=== PATIENT | male | born 1935 | race Two or more races ===

== ENCOUNTER 2017-05-15 13:38 | Emergency (ER) | payer MEDICARE, OTHER ==
[~2017-05-15] VITALS: Ht 162.6 cm; Wt 73.0 kg
[2017-05-15] MEDS ORDERED: SODIUM CHLORIDE 0.9% 1,000 ML IV ONE (14:31)
[2017-05-15] MEDS ORDERED: PLEASE ENTER ALLERGIES MC SCH (15:00)
[2017-05-15] MEDS ORDERED: SODIUM CHLORIDE 0.9% 1,000ML IVBOLUS ONE (15:00)
[2017-05-15 15:50] LABS: BASOPHILS # (AUTO) 0.03 x10^3/uL (0-0.1); BASOPHILS % (AUTO) 1 % (0-1); EOSINOPHILS % (AUTO) 1 % (1-7); LYMPHOCYTES # (AUTO) 0.93 x10^3/uL (1-3.4); LYMPHOCYTES % (AUTO) 14 % (22-44); MD NO; MEAN CORPUSCULAR HGB CONC 33.8 g/dL (33.2-36.2); MEAN CORPUSCULAR VOLUME 97.8 fL (81-97); MEAN PLATELET VOLUME 7.1 fL (7.4-10.4); MONOCYTES # (AUTO) 0.56 x10^3/uL (0.2-0.8); MONOCYTES % (AUTO) 8 % (2-9); NEUTROPHILS # (AUTO) 5.12 x10^3/uL (1.8-6.8); NEUTROPHILS % (AUTO) 76 % (42-75); PLATELET COUNT 210 x10^3/uL (130-400); RED BLOOD COUNT 5.08 x10^6/uL (4.38-5.82); RED CELL DISTRIBUTION WIDTH 14.1 % (9.4-14.8)
[2017-05-15 16:02] LABS: ALANINE AMINOTRANSFERASE 29 U/L (12-78); ALBUMIN 4.3 g/dL (3.4-5.0); ANION GAP 7 mmol/L (5-15); CALCIUM 8.7 mg/dL (8.5-10.1); CHLORIDE 92 mmol/L (98-107); CREATININE 1.14 mg/dL (0.7-1.3)
[2017-05-15 16:05] LABS: ALKALINE PHOSPHATASE 70 U/L (45-117); BILIRUBIN,TOTAL 1.2 mg/dL (0.2-1.0); TOTAL PROTEIN 8.4 g/dL (6.4-8.2)
[2017-05-15 16:15] LABS: MICROSCOPIC AUTO
[2017-05-15 16:18] LABS: CULTURE INDICATED? NO
[2017-05-15 16:48] VITALS: BP 132/82
== END 2017-05-15 17:19 | disposition home or self-care (01) ==
LOC: ED 17:13
DX: K80.70 Calculus of gallbladder and bile duct without cholecystitis without obstruction (principal); I10 Essential (primary) hypertension
CPT/HCPCS: 36415; 74022; 74177; 80053; 81001; 83690; 85025; 96360; 96361; 99285; J7030

== ENCOUNTER 2017-10-26 02:08 | Inpatient (IN) | payer MEDICARE ==
[~2017-10-26] VITALS: Ht 162.6 cm; Wt 73.3 kg
[2017-10-26] MEDS ORDERED: MORPHINE SULFATE 4 MG/ML, 1ML ONE ×4 (02:54→05:46)
[2017-10-26 02:55] LABS: BASOPHILS # (AUTO) 0.01 x10^3/uL (0-0.1); BASOPHILS % (AUTO) 0 % (0-1); EOSINOPHILS # (AUTO) 0.11 x10^3/uL (0-0.4); EOSINOPHILS % (AUTO) 1 % (1-7); LYMPHOCYTES # (AUTO) 0.86 x10^3/uL (1-3.4); LYMPHOCYTES % (AUTO) 8 % (22-44); MD NO; MEAN CORPUSCULAR HGB CONC 33.7 g/dL (33.2-36.2); MEAN CORPUSCULAR VOLUME 97.9 fL (81-97); MEAN PLATELET VOLUME 6.8 fL (7.4-10.4); MONOCYTES # (AUTO) 0.49 x10^3/uL (0.2-0.8); MONOCYTES % (AUTO) 5 % (2-9); NEUTROPHILS # (AUTO) 9.04 x10^3/uL (1.8-6.8); NEUTROPHILS % (AUTO) 86 % (42-75); PLATELET COUNT 196 x10^3/uL (130-400); RED BLOOD COUNT 4.66 x10^6/uL (4.38-5.82); RED CELL DISTRIBUTION WIDTH 14.1 % (9.4-14.8)
[2017-10-26] MEDS: MORPHINE SULFATE 4 MG/ML, 1ML IVPush PRN ×2 (02:57→03:35)
[2017-10-26] MEDS ORDERED: SODIUM CHLORIDE FLUSH 10ML SYR IVF ONE (03:00)
[2017-10-26 03:04] LABS: INTERNATIONAL NORMALIZED RATIO 1.02 (0.93-1.1); PROTHROMBIN TIME 10.5 Seconds (9.6-11.5)
[2017-10-26 03:08] LABS: ALANINE AMINOTRANSFERASE 26 U/L (12-78); ANION GAP 7 mmol/L (5-15); CALCIUM 9.2 mg/dL (8.5-10.1); CHLORIDE 98 mmol/L (98-107); CREATININE 1.18 mg/dL (0.7-1.3)
[2017-10-26 03:16] LABS: ALKALINE PHOSPHATASE 66 U/L (45-117); BILIRUBIN,TOTAL 0.6 mg/dL (0.2-1.0); TOTAL PROTEIN 7.9 g/dL (6.4-8.2)
[2017-10-26] MEDS ORDERED: MECL12.52 PO (03:40)
[2017-10-26] MEDS ORDERED: FLUT1AER INH (03:40)
[2017-10-26] MEDS ORDERED: FEXO180T72 PO (03:40)
[2017-10-26] MEDS ORDERED: LOSARTAN PO (03:40)
[2017-10-26] MEDS ORDERED: ALLO100T30 PO (03:40)
[2017-10-26] MEDS ORDERED: ASPI-515 PO (03:40)
[2017-10-26 03:50] LABS: MICROSCOPIC NOT IND
[2017-10-26 03:52] LABS: CULTURE INDICATED? NO
[2017-10-26] MEDS ORDERED: OMNIPAQUE 350 MG/ML, 100ML BOTTLE ONE (04:15)
[2017-10-26] MEDS ORDERED: MORPHINE SULFATE 4 MG/ML, 1ML IVPush ONE (05:30)
[2017-10-26] MEDS ORDERED: GLUC1TAB27 PO (06:00)
[2017-10-26] MEDS ORDERED: CHOL200059 PO (06:00)
[2017-10-26] MEDS ORDERED: ACETAMINOPHEN 325 MG TABLET PO PRN ×2 (06:30→17:00)
[2017-10-26] MEDS ORDERED: hydrALAzine 20 MG/ML, 1ML IVPush PRN (06:30)
[2017-10-26] MEDS ORDERED: ONDANSETRON ODT 4 MG PO PRN (06:30)
[2017-10-26] MEDS ORDERED: DOCUSATE 100 MG CAPSULE PO PRN (06:30)
[2017-10-26] MEDS ORDERED: HYDROmorphone 2 MG/ML, 1ML IVPush PRN (06:30)
[2017-10-26] MEDS ORDERED: BISACODYL 10 MG SUPP PR PRN (06:30)
[2017-10-26] MEDS ORDERED: ENALAPRILAT 1.25 MG/ML, 2ML IVPush PRN (06:30)
[2017-10-26] MEDS ORDERED: ONDANSETRON 2MG/ML, 2ML IVPush PRN (06:30)
[2017-10-26] MEDS ORDERED: morphine SULFATE 10 MG/ML, 1ML IVPush PRN (06:30)
[2017-10-26 06:48] VITALS: BP 173/84
[2017-10-26 07:37] VITALS: BP 170/82
[2017-10-26] MEDS ORDERED: CEFTRIAXONE 1,000 MG in SODIUM CHLORIDE 0.9% 50 ML IV SCH (09:00)
[2017-10-26] MEDS: MECLIZINE 12.5 MG TABLET PO SCH (09:37)
[2017-10-26] MEDS: ASPIRIN 81 MG TABLET EC PO SCH (09:37)
[2017-10-26] MEDS: ALLOPURINOL 100 MG TABLET PO SCH (09:37)
[2017-10-26] MEDS: LOSARTAN 50MG TABLET PO SCH (09:37)
[2017-10-26] MEDS: FLUTICASONE/VILANTEROL 100-25MCG/INH INH SCH (11:38)
[2017-10-26] MEDS: CEFTRIAXONE PMX 1GM/50ML 50 ML IV SCH (11:39)
[2017-10-26] MEDS: ENOXAPARIN 40 MG/0.4 ML SQ SCH (11:39)
[2017-10-26] MEDS ORDERED: POTASSIUM CHLORIDE 10 MEQ in D5%-0.45% NACL 1,000 ML IV SCH (12:00)
[2017-10-26 13:50] VITALS: BP 151/93
[2017-10-26] MEDS ORDERED: FENTANYL PF 100 MCG/2ML ONE ×2 (15:43→16:59)
[2017-10-26] MEDS ORDERED: LIDOCAINE GEL 2%, 5ML ONE (15:44)
[2017-10-26] MEDS ORDERED: LABETALOL 5MG/ML, 20ML ONE (15:52)
[2017-10-26] MEDS ORDERED: BUPIVACAINE/PF 0.25% INFIL ONE (16:19)
[2017-10-26] MEDS ORDERED: CEFAZOLIN 1,000 MG ONE (16:36)
[2017-10-26] MEDS ORDERED: PROPOFOL 10 MG/ML, 20ML ONE (16:36)
[2017-10-26] MEDS ORDERED: DEXAMETHASONE 4 MG/ML, 1ML ONE (16:36)
[2017-10-26] MEDS ORDERED: SUCCINYLCHOLINE 20 MG/ML, 10ML ONE (16:36)
[2017-10-26] MEDS ORDERED: ROCURONIUM 10MG/ML,5ML ONE (16:36)
[2017-10-26] MEDS ORDERED: GLYCOPYRROLATE 0.2MG/1ML, 5ML ONE (16:36)
[2017-10-26] MEDS ORDERED: NEOSTIGMINE 1 MG/ML, 10ML ONE (16:36)
[2017-10-26] MEDS ORDERED: ONDANSETRON 2MG/ML, 2ML ONE ×2 (16:36→17:31)
[2017-10-26] MEDS ORDERED: ALBUTEROL SULFATE 2.5 MG/3 ML ONE (16:49)
[2017-10-26] MEDS ORDERED: BUPIVACAINE 0.25% ONE (16:50)
[2017-10-26] MEDS ORDERED: hydrALAzine 20 MG/ML, 1ML ONE (16:54)
[2017-10-26] MEDS ORDERED: ALBUTEROL/IPRATROPIUM 2.5MG/0.5MG, 3 ML NPPB PRN (17:00)
[2017-10-26] MEDS ORDERED: LABETALOL 5MG/ML, 20ML IV PRN (17:00)
[2017-10-26] MEDS ORDERED: hydrALAzine 20 MG/ML, 1ML IV PRN (17:00)
[2017-10-26] MEDS ORDERED: EPHEDRINE 50 MG/ML, 1ML IM PRN (17:00)
[2017-10-26] MEDS ORDERED: PROMETHAZINE 25 MG/ML, 1ML IV PRN (17:00)
[2017-10-26] MEDS ORDERED: HYDROmorphone 1 MG/ML, 1ML IV PRN (17:00)
[2017-10-26] MEDS ORDERED: OXYcodone 5 MG/5 ML ORAL.SOL UDC PO PRN (17:00)
[2017-10-26] MEDS ORDERED: MEPERIDINE/PF 25MG/0.5ML IVPush PRN (17:00)
[2017-10-26] MEDS ORDERED: ONDANSETRON ODT 8 MG PO PRN (17:00)
[2017-10-26] MEDS ORDERED: MIDAZOLAM 1 MG/ML, 2ML IV PRN (17:00)
[2017-10-26] MEDS ORDERED: MORPHINE SULFATE 4 MG/ML, 1ML IVPush PRN (17:00)
[2017-10-26] MEDS: FENTANYL PF 100 MCG/2ML IV PRN ×3 (17:05→17:27)
[2017-10-26] MEDS ORDERED: OXYcodone 5 MG/5 ML ORAL.SOL UDC ONE (17:18)
[2017-10-26 18:20] VITALS: BP 171/68
[2017-10-26] MEDS ORDERED: LACTATED RINGERS 1,000 ML IV SCH (21:30)
[2017-10-26] MEDS ORDERED: HYDROcodone/APAP 5/325 TABLET PO PRN (21:30)
[2017-10-26] MEDS ORDERED: ONDANSETRON 2MG/ML, 2ML IV PRN (21:30)
[2017-10-26] MEDS ORDERED: morphine SULFATE 10 MG/ML, 1ML IV PRN (21:30)
[2017-10-26] MEDS: HYDROcodone/APAP 5/325 TABLET PO PRN (23:13)
[2017-10-27 00:11] VITALS: BP 111/73
[2017-10-27 06:27] LABS: BASOPHILS # (AUTO) 0.01 x10^3/uL (0-0.1); BASOPHILS % (AUTO) 0 % (0-1); EOSINOPHILS % (AUTO) 0 % (1-7); LYMPHOCYTES # (AUTO) 0.45 x10^3/uL (1-3.4); LYMPHOCYTES % (AUTO) 4 % (22-44); MD NO; MEAN CORPUSCULAR HEMOGLOBIN 33.3 pg (27.5-34.5); MEAN CORPUSCULAR HGB CONC 33.7 g/dL (33.2-36.2); MEAN CORPUSCULAR VOLUME 98.7 fL (81-97); MONOCYTES # (AUTO) 0.24 x10^3/uL (0.2-0.8); MONOCYTES % (AUTO) 2 % (2-9); NEUTROPHILS # (AUTO) 10.78 x10^3/uL (1.8-6.8); NEUTROPHILS % (AUTO) 94 % (42-75); PLATELET COUNT 158 x10^3/uL (130-400); RED BLOOD COUNT 4.35 x10^6/uL (4.38-5.82); RED CELL DISTRIBUTION WIDTH 14.2 % (9.4-14.8)
[2017-10-27] MEDS: ENOXAPARIN 40 MG/0.4 ML SQ SCH (06:30)
[2017-10-27 06:36] LABS: ANION GAP 7 mmol/L (5-15); CALCIUM 8.1 mg/dL (8.5-10.1); CHLORIDE 96 mmol/L (98-107); CREATININE 1.45 mg/dL (0.7-1.3)
[2017-10-27 07:23] VITALS: BP 104/66
[2017-10-27] MEDS ORDERED: POTASSIUM CHLORIDE 10 MEQ in D5%-0.9% NACL 1,000 ML IV SCH (08:30)
[2017-10-27] MEDS: ASPIRIN 81 MG TABLET EC PO SCH (09:38)
[2017-10-27] MEDS: ALLOPURINOL 100 MG TABLET PO SCH (09:38)
[2017-10-27] MEDS: FLUTICASONE/VILANTEROL 100-25MCG/INH INH SCH (09:38)
[2017-10-27] MEDS: MECLIZINE 12.5 MG TABLET PO SCH (09:38)
[2017-10-27] MEDS: LOSARTAN 50MG TABLET PO SCH (09:39)
[2017-10-27] MEDS: SODIUM CHLORIDE FLUSH 10ML SYR IVF SCH ×2 (09:39→20:48)
[2017-10-27] MEDS: CEFTRIAXONE PMX 1GM/50ML 50 ML IV SCH (10:26)
[2017-10-27 13:56] VITALS: BP 106/70
[2017-10-27 20:10] VITALS: BP 115/77
[2017-10-28 00:21] VITALS: BP 109/70
[2017-10-28] MEDS: HYDROcodone/APAP 5/325 TABLET PO PRN ×3 (03:13→13:18)
[2017-10-28] MEDS: ENOXAPARIN 40 MG/0.4 ML SQ SCH (05:43)
[2017-10-28 07:00] VITALS: BP 94/59
[2017-10-28 07:31] LABS: MEAN CORPUSCULAR HEMOGLOBIN 33.4 pg (27.5-34.5); PLATELET COUNT 142 x10^3/uL (130-400); RED BLOOD COUNT 4.36 x10^6/uL (4.38-5.82); RED CELL DISTRIBUTION WIDTH 14.2 % (9.4-14.8)
[2017-10-28 07:43] LABS: ANION GAP 8 mmol/L (5-15); CALCIUM 8.9 mg/dL (8.5-10.1); CHLORIDE 95 mmol/L (98-107); CREATININE 1.17 mg/dL (0.7-1.3)
[2017-10-28 08:09] LABS: MD YES
[2017-10-28 08:11] LABS: BANDS%(MANUAL) 6 % (0-7); LYMPHS% (MANUAL) 4 % (22-44); SEGS% (MANUAL) 90 % (42-75)
[2017-10-28 08:12] LABS: <PLATELET ESTIMATE> ADEQUATE; <PLT MORPHOLOGY> NORMAL PLT MORPH; <RBC MORPHOLOGY> NORMAL
[2017-10-28] MEDS: ASPIRIN 81 MG TABLET EC PO SCH (08:17)
[2017-10-28] MEDS: MECLIZINE 12.5 MG TABLET PO SCH (08:17)
[2017-10-28] MEDS: FLUTICASONE/VILANTEROL 100-25MCG/INH INH SCH (08:17)
[2017-10-28] MEDS: SODIUM CHLORIDE FLUSH 10ML SYR IVF SCH (08:17)
[2017-10-28] MEDS: LOSARTAN 50MG TABLET PO SCH (08:18)
[2017-10-28] MEDS: ALLOPURINOL 100 MG TABLET PO SCH (08:18)
[2017-10-28] MEDS: CEFTRIAXONE PMX 1GM/50ML 50 ML IV SCH (10:18)
[2017-10-28 13:38] VITALS: BP 100/68
== END 2017-10-28 15:32 | disposition home or self-care (01) | DRG 853 ==
LOC: ED 05:39 → EDIP 06:08 → 4WST 06:43
PROVIDERS: ADMIT Anesthesiology; ATTEND Anesthesiology
PROC: 0FT44ZZ Resection of Gallbladder, Percutaneous Endoscopic Approach (ICD-10-PCS; principal; 2017-10-26 16:00)
DX: A41.9 Sepsis, unspecified organism (principal); N17.0 Acute kidney failure with tubular necrosis; K80.00 Calculus of gallbladder with acute cholecystitis without obstruction; E87.1 Hypo-osmolality and hyponatremia; I10 Essential (primary) hypertension; K82.8 Other specified diseases of gallbladder; J45.909 Unspecified asthma, uncomplicated; K66.0 Peritoneal adhesions (postprocedural) (postinfection); M10.9 Gout, unspecified; Z87.891 Personal history of nicotine dependence; Z79.899 Other long term (current) drug therapy
CPT/HCPCS: 36415; 71045; 74177; 76700; 80048; 80053; 81003; 83690; 85025; 85610; 85730; 88304; 96374; 96376; J0690; J0696; J1100; J1170; J2405; J2704; J2710; J3010; J3480; J3490; J7620; Q9967; C1760; J0330; J2270; J7120

== ENCOUNTER 2017-12-06 16:12 | Inpatient (IN) | payer MEDICARE ==
[~2017-12-06] VITALS: Ht 162.6 cm; Wt 71.6 kg
[~2017-12-06 16:12] MED LIST: ALLO100T30 PO; ASPI-515 PO; CHOL200059 PO; FEXO180T72 PO; FLUT1AER INH; GLUC1TAB27 PO; LOSARTAN PO; MECL12.52 PO
[2017-12-06] MEDS ORDERED: SODIUM CHLORIDE FLUSH 10ML SYR IVF ONE ×2 (16:30→17:30)
[2017-12-06 16:38] LABS: BASOPHILS # (AUTO) 0.02 x10^3/uL (0-0.1); BASOPHILS % (AUTO) 0 % (0-1); EOSINOPHILS % (AUTO) 1 % (1-7); LYMPHOCYTES # (AUTO) 1.74 x10^3/uL (1-3.4); LYMPHOCYTES % (AUTO) 22 % (22-44); MD NO; MEAN CORPUSCULAR HEMOGLOBIN 33.3 pg (27.5-34.5); MEAN CORPUSCULAR HGB CONC 33.6 g/dL (33.2-36.2); MEAN CORPUSCULAR VOLUME 99.1 fL (81-97); MEAN PLATELET VOLUME 6.7 fL (7.4-10.4); MONOCYTES # (AUTO) 0.48 x10^3/uL (0.2-0.8); MONOCYTES % (AUTO) 6 % (2-9); NEUTROPHILS # (AUTO) 5.75 x10^3/uL (1.8-6.8); NEUTROPHILS % (AUTO) 71 % (42-75); PLATELET COUNT 224 x10^3/uL (130-400); RED BLOOD COUNT 4.36 x10^6/uL (4.38-5.82); RED CELL DISTRIBUTION WIDTH 14.8 % (9.4-14.8)
[2017-12-06 16:47] LABS: MICROSCOPIC NOT IND
[2017-12-06] MEDS ORDERED: MULT-6 PO (16:47)
[2017-12-06] MEDS ORDERED: PANT20TA3 PO (16:47)
[2017-12-06 16:48] LABS: CULTURE INDICATED? NO
[2017-12-06 16:50] LABS: ALANINE AMINOTRANSFERASE 22 U/L (12-78); ALBUMIN 4.1 g/dL (3.4-5.0); ANION GAP 8 mmol/L (5-15); CHLORIDE 103 mmol/L (98-107); CREATININE 1.09 mg/dL (0.7-1.3)
[2017-12-06 16:52] LABS: ALKALINE PHOSPHATASE 80 U/L (45-117); BILIRUBIN,TOTAL 0.8 mg/dL (0.2-1.0); TOTAL PROTEIN 8.2 g/dL (6.4-8.2)
[2017-12-06] MEDS ORDERED: OMNIPAQUE 350 MG/ML, 100ML BOTTLE ONE (17:47)
[2017-12-06] MEDS ORDERED: CEFTRIAXONE PMX 1GM/50ML 50 ML ONE (19:20)
[2017-12-06] MEDS ORDERED: BUPIVACAINE/PF-EPI 0.5% 1:200K ONE (19:21)
[2017-12-06] MEDS ORDERED: BUPIVACAINE/PF-EPI 0.5% 1:200K IM ONE (19:27)
[2017-12-06] MEDS ORDERED: CEFTRIAXONE 1,000 MG in SODIUM CHLORIDE 0.9% 50 ML IVPB ONE (19:30)
[2017-12-06] MEDS ORDERED: METRONIDAZOLE PMX 500MG/100ML 100 ML IVPB ONE (19:30)
[2017-12-06] MEDS ORDERED: CEFTRIAXONE 1,000 MG IV ONE (19:30)
[2017-12-06] MEDS ORDERED: metroNIDAZOLE 5 MG/ML INJ 500 MG in SYRINGE 1 EA IV SCH (19:30)
[2017-12-06] MEDS ORDERED: FENTANYL PF 100 MCG/2ML ONE ×3 (19:33→20:58)
[2017-12-06] MEDS ORDERED: DEXAMETHASONE 4 MG/ML, 1ML ONE (19:42)
[2017-12-06] MEDS ORDERED: GLYCOPYRROLATE 0.2MG/1ML, 5ML ONE (19:42)
[2017-12-06] MEDS ORDERED: ONDANSETRON 2MG/ML, 2ML ONE (19:42)
[2017-12-06] MEDS ORDERED: PROPOFOL 10 MG/ML, 20ML ONE (19:42)
[2017-12-06] MEDS ORDERED: ROCURONIUM 10 MG/ML,10ML ONE (19:42)
[2017-12-06] MEDS ORDERED: NEOSTIGMINE 1 MG/ML, 10ML ONE (19:42)
[2017-12-06] MEDS ORDERED: SUCCINYLCHOLINE 20 MG/ML, 10ML ONE (19:42)
[2017-12-06] MEDS ORDERED: PROMETHAZINE 25 MG/ML, 1ML IV PRN (20:00)
[2017-12-06] MEDS ORDERED: ACETAMINOPHEN 325 MG TABLET PO PRN (20:00)
[2017-12-06] MEDS ORDERED: LORazepam 2 MG/ML, 1ML IVPush PRN (20:00)
[2017-12-06] MEDS ORDERED: HYDROmorphone 1 MG/ML, 1ML IV PRN ×2 (20:00→22:00)
[2017-12-06] MEDS ORDERED: OXYcodone 5 MG/5 ML ORAL.SOL UDC PO PRN (20:00)
[2017-12-06] MEDS ORDERED: LABETALOL 5MG/ML, 20ML IV PRN (20:00)
[2017-12-06] MEDS ORDERED: ACETAMINOPHEN 650 MG/20.3 ML UDC ONE (20:57)
[2017-12-06] MEDS ORDERED: OXYcodone 5 MG/5 ML ORAL.SOL UDC ONE (20:58)
[2017-12-06] MEDS: FENTANYL PF 100 MCG/2ML IV PRN ×2 (21:05→21:18)
[2017-12-06] MEDS ORDERED: D5%-0.45NACL+KCL 20MEQ 1,000 ML IV SCH (22:00)
[2017-12-06] MEDS ORDERED: morphine SULFATE 10 MG/ML, 1ML IV PRN (22:00)
[2017-12-06] MEDS ORDERED: ENOXAPARIN 40 MG/0.4 ML SQ SCH (22:00)
[2017-12-06] MEDS ORDERED: ONDANSETRON 2MG/ML, 2ML IV PRN (22:00)
[2017-12-06] MEDS ORDERED: HYDROcodone/APAP 5/325 TABLET PO PRN (22:00)
[2017-12-06] MEDS: METRONIDAZOLE PMX 500MG/100ML 100 ML IVPB SCH (22:21)
[2017-12-06] MEDS: CEFOTETAN PMX 1GM/50ML 50 ML IVPB SCH (23:36)
[2017-12-07 02:57] VITALS: BP 133/80
[2017-12-07 05:09] LABS: MEAN CORPUSCULAR HEMOGLOBIN 33.5 pg (27.5-34.5); MEAN CORPUSCULAR VOLUME 98.6 fL (81-97); MEAN PLATELET VOLUME 7.7 fL (7.4-10.4); PLATELET COUNT 153 x10^3/uL (130-400); RED BLOOD COUNT 3.86 x10^6/uL (4.38-5.82); RED CELL DISTRIBUTION WIDTH 14.9 % (9.4-14.8)
[2017-12-07 05:34] LABS: BASOPHILS % (AUTO) 0 % (0-1); EOSINOPHILS % (AUTO) 0 % (1-7); LYMPHOCYTES # (AUTO) 0.35 x10^3/uL (1-3.4); LYMPHOCYTES % (AUTO) 3 % (22-44); MD SCAN; MONOCYTES # (AUTO) 0.23 x10^3/uL (0.2-0.8); MONOCYTES % (AUTO) 2 % (2-9); NEUTROPHILS # (AUTO) 9.94 x10^3/uL (1.8-6.8); NEUTROPHILS % (AUTO) 95 % (42-75)
[2017-12-07] MEDS: METRONIDAZOLE PMX 500MG/100ML 100 ML IVPB SCH (06:29)
[2017-12-07 07:10] VITALS: BP 161/91
[2017-12-07] MEDS ORDERED: PANTOPRAZOLE 20MG TABLET PO SCH (07:30)
[2017-12-07] MEDS ORDERED: LOSARTAN 50MG TABLET PO SCH (09:00)
[2017-12-07] MEDS ORDERED: ENOXAPARIN 40 MG/0.4 ML SQ SCH (09:00)
[2017-12-07] MEDS ORDERED: FLUTICASONE/VILANTEROL 100-25MCG/INH INH SCH (09:00)
[2017-12-07] MEDS ORDERED: MULTIVITAMIN 1 TABLET PO SCH (09:00)
[2017-12-07] MEDS ORDERED: LORATADINE 10 MG TABLET PO SCH (09:00)
[2017-12-07] MEDS ORDERED: ALLOPURINOL 300 MG TABLET PO SCH (09:00)
[2017-12-07] MEDS ORDERED: ASPIRIN 81 MG TABLET CHEW PO SCH (09:00)
[2017-12-07] MEDS ORDERED: MECLIZINE CHEWABLE 25 MG TAB PO SCH (09:00)
[2017-12-07] MEDS ORDERED: HYDR-3240 PO (09:34)
[2017-12-07] MEDS ORDERED: CEPH-368 PO (09:35)
[2017-12-07 12:40] VITALS: BP 134/81
[2017-12-07] MEDS: CEFOTETAN PMX 1GM/50ML 50 ML IVPB SCH (12:54)
== END 2017-12-07 16:00 | disposition home or self-care (01) | DRG 343 ==
LOC: ED 18:35 → 4NOR 21:35 → ED 22:32
PROVIDERS: ADMIT Surgery; ATTEND Surgery
PROC: 0DTJ4ZZ Resection of Appendix, Percutaneous Endoscopic Approach (ICD-10-PCS; principal; 2017-12-06 19:45)
DX: K35.80 Unspecified acute appendicitis (principal); I10 Essential (primary) hypertension; J30.2 Other seasonal allergic rhinitis; M10.9 Gout, unspecified; Z87.891 Personal history of nicotine dependence; Z90.49 Acquired absence of other specified parts of digestive tract
CPT/HCPCS: 36415; 74177; 80053; 81003; 83690; 85025; 88304; 96372; 99285; J0696; J1100; J1650; J2405; J2704; J2710; J3010; J3490; Q9967; J0330; S0074

== ENCOUNTER 2018-01-24 09:22 | Day surgery (SDC) | payer MEDICARE ==
[~2018-01-24] VITALS: Ht 162.6 cm; Wt 66.2 kg
[~2018-01-24 09:22] MED LIST changes: +CEPH-368 PO; +HYDR-3240 PO; +MULT-6 PO; +PANT20TA3 PO
[2018-01-24] MEDS ORDERED: SODIUM CHLORIDE 0.9% 1,000 ML IV SCH (10:10)
[2018-01-24 10:11] VITALS: BP 134/89
[2018-01-24] MEDS ORDERED: LOSA50TA7 PO (10:21)
[2018-01-25] MEDS ORDERED: GLUC-104 PO (15:52)
[2018-01-25] MEDS ORDERED: FLUT1BLS INH (15:52)
[2018-01-25] MEDS ORDERED: CHOL200024 PO (15:52)
[2018-01-25] MEDS ORDERED: HYDR-3237 PO (15:53)
== END 2018-01-24 12:45 | disposition home or self-care (01) ==
LOC: OUT 09:22
PROVIDERS: ATTEND Surgery
DX: K65.1 Peritoneal abscess (principal); I10 Essential (primary) hypertension; Z79.899 Other long term (current) drug therapy; Z87.891 Personal history of nicotine dependence; Z79.82 Long term (current) use of aspirin; Z90.49 Acquired absence of other specified parts of digestive tract
CPT/HCPCS: 49406; 75989; 87070; 87075; 87077; 87186; 87205; 93005; 99156; 99157; C1729; J2250; J3010; J3490; J7030

== ENCOUNTER → 2018-01-25 | Outpatient (CLI) | payer MEDICARE ==
[~2018-01-25] MED LIST changes: +CHOL200024 PO; +FENTANYL PF 100 MCG/2ML ONE; +FLUMAZENIL 0.1 MG/1 ML, 5ML ONE; +FLUT1BLS INH; +GLUC-104 PO; +HYDR-3237 PO; +LIDOCAINE-MPF 2%, 2ML ONE; +LOSA50TA7 PO; +MIDAZOLAM 1 MG/ML, 5ML ONE; +NALOXONE 1 MG/ML, 2ML ONE
== END | disposition home or self-care (01) ==
LOC: STAR 15:02
PROVIDERS: ATTEND Surgery
DX: Z01.818 Encounter for other preprocedural examination (principal); R94.31 Abnormal electrocardiogram [ECG] [EKG]; I48.91 Unspecified atrial fibrillation
CPT/HCPCS: 93005; J2250; J3010; J3490; J2310

== ENCOUNTER → 2018-02-15 | Outpatient (CLI) | payer MEDICARE ==
[~2018-02-15] MED LIST changes: -FENTANYL PF 100 MCG/2ML ONE; -FLUMAZENIL 0.1 MG/1 ML, 5ML ONE; -LIDOCAINE-MPF 2%, 2ML ONE; -MIDAZOLAM 1 MG/ML, 5ML ONE; -NALOXONE 1 MG/ML, 2ML ONE; +REGADENOSON 0.4 MG/5 ML SYRINGE ONE
== END | disposition home or self-care (01) ==
LOC: CFH 12:00
PROVIDERS: ATTEND Internal Medicine Cardiovascular Disease
DX: I07.1 Rheumatic tricuspid insufficiency (principal); I37.1 Nonrheumatic pulmonary valve insufficiency; I35.8 Other nonrheumatic aortic valve disorders; I10 Essential (primary) hypertension; Z87.891 Personal history of nicotine dependence
CPT/HCPCS: 78452; 93017; 93306; A9502; J2785

== ENCOUNTER 2018-02-26 08:04 | Day surgery (SDC) | payer MEDICARE ==
[~2018-02-26] VITALS: Ht 162.6 cm; Wt 66.1 kg
[~2018-02-26 08:04] MED LIST changes: +BUPIVACAINE/PF-EPI 0.5% 1:200K ONE; -REGADENOSON 0.4 MG/5 ML SYRINGE ONE
[2018-02-26] MEDS ORDERED: LACTATED RINGERS 1,000 ML IV SCH (08:40)
[2018-02-26] MEDS ORDERED: ALBUTEROL/IPRATROPIUM 2.5MG/0.5MG, 3 ML ONE (08:46)
[2018-02-26] MEDS ORDERED: ALBUTEROL/IPRATROPIUM 2.5MG/0.5MG, 3 ML NPPB PRN (09:00)
[2018-02-26 09:02] VITALS: BP 150/83
[2018-02-26] MEDS ORDERED: CEFAZOLIN 1,000 MG ONE (09:35)
[2018-02-26] MEDS ORDERED: PROPOFOL 10 MG/ML, 20ML ONE (09:35)
[2018-02-26] MEDS ORDERED: ROCURONIUM 10MG/ML,5ML ONE (10:11)
[2018-02-26] MEDS ORDERED: LIDOCAINE-MPF 2% ,5ML ONE (10:12)
[2018-02-26] MEDS ORDERED: METOPROLOL 1 MG/ML, 5ML ONE (10:12)
[2018-02-26] MEDS ORDERED: HYDROcodone/APAP 7.5-325MG/15ML UDC PO PRN (10:30)
[2018-02-26] MEDS ORDERED: OXYcodone 5 MG/5 ML ORAL.SOL UDC PO PRN (10:30)
[2018-02-26] MEDS ORDERED: MORPHINE SULFATE 4 MG/ML, 1ML IVPush PRN (10:30)
[2018-02-26] MEDS ORDERED: KETOROLAC 30 MG/1 ML IV PRN ×2 (10:30)
[2018-02-26] MEDS ORDERED: HYDROmorphone 1 MG/ML, 1ML IV PRN (10:30)
[2018-02-26] MEDS ORDERED: KETOROLAC 30 MG/1 ML IM PRN (10:30)
[2018-02-26] MEDS ORDERED: FENTANYL PF 100 MCG/2ML IV PRN (10:30)
[2018-02-26] MEDS ORDERED: ACETAMINOPHEN 325 MG TABLET PO PRN (10:30)
[2018-02-26] MEDS ORDERED: MEPERIDINE/PF 25MG/0.5ML IVPush PRN (10:30)
[2018-02-26] MEDS ORDERED: FENTANYL PF 100 MCG/2ML ONE (10:30)
== END 2018-02-26 13:50 | disposition home or self-care (01) ==
LOC: OUT 08:04
PROVIDERS: ATTEND Surgery
DX: K80.20 Calculus of gallbladder without cholecystitis without obstruction (principal); I48.91 Unspecified atrial fibrillation; I10 Essential (primary) hypertension; Z90.49 Acquired absence of other specified parts of digestive tract; Z98.890 Other specified postprocedural states; Z87.891 Personal history of nicotine dependence; Z79.82 Long term (current) use of aspirin; Z79.899 Other long term (current) drug therapy; Z01.810 Encounter for preprocedural cardiovascular examination
CPT/HCPCS: 49320; 88300; 94640; C1729; C1760; J0690; J2704; J3010; J3490; J7120; J7620

== ENCOUNTER 2019-03-08 07:53 | Day surgery (SDC) | payer MEDICARE ==
[~2019-03-08] VITALS: Ht 162.6 cm; Wt 72.0 kg
[~2019-03-08 07:53] MED LIST changes: -BUPIVACAINE/PF-EPI 0.5% 1:200K ONE; +LOSA50TA14 PO; -LOSA50TA7 PO
[2019-03-08 09:12] VITALS: BP 154/94
[2019-03-08] MEDS ORDERED: SODIUM CHLORIDE 0.9% 1,000 ML IV SCH (09:15)
[2019-03-08] MEDS ORDERED: LIDOCAINE 1%, 20ML ONE (14:20)
[2019-03-08] MEDS ORDERED: MIDAZOLAM 1 MG/ML, 5ML ONE (14:28)
[2019-03-08] MEDS ORDERED: NALOXONE 1 MG/ML, 2ML ONE (14:28)
[2019-03-08] MEDS ORDERED: FENTANYL PF 100 MCG/2ML ONE (14:28)
[2019-03-08] MEDS ORDERED: FLUMAZENIL 0.1 MG/1 ML, 5ML ONE (14:28)
== END 2019-03-08 17:10 | disposition home or self-care (01) ==
LOC: OUT 07:53
PROVIDERS: ATTEND Surgery
DX: K75.0 Abscess of liver (principal); K80.20 Calculus of gallbladder without cholecystitis without obstruction; I10 Essential (primary) hypertension; Z79.82 Long term (current) use of aspirin; Z79.899 Other long term (current) drug therapy; Z87.891 Personal history of nicotine dependence; Z90.49 Acquired absence of other specified parts of digestive tract; Z82.49 Family history of ischemic heart disease and other diseases of the circulatory system
CPT/HCPCS: 49405; 99156; 99157; C1729; C1769; J2250; J3010; 75989; J2310

== ENCOUNTER 2019-03-11 06:51 | Day surgery (SDC) | payer MEDICARE ==
[~2019-03-11] VITALS: Ht 162.6 cm; Wt 69.9 kg
[2019-03-11] MEDS ORDERED: BUPIVACAINE/PF 0.5% ONE (07:01)
[2019-03-11 07:31] VITALS: BP 143/91
[2019-03-11] MEDS ORDERED: FENTANYL PF 250 MCG/5ML ONE (07:35)
[2019-03-11] MEDS ORDERED: CEFOTETAN PMX 2GM/50ML 50 ML ONE (07:37)
[2019-03-11] MEDS ORDERED: GLYCOPYRROLATE 0.2MG/1ML, 5ML ONE (07:37)
[2019-03-11] MEDS ORDERED: PROPOFOL 10 MG/ML, 20ML ONE (07:37)
[2019-03-11] MEDS ORDERED: CEFAZOLIN 1,000 MG ONE (07:37)
[2019-03-11] MEDS ORDERED: NEOSTIGMINE 1 MG/ML, 10ML ONE (07:37)
[2019-03-11] MEDS ORDERED: ROCURONIUM 10MG/ML,5ML ONE (07:37)
[2019-03-11] MEDS ORDERED: MECL25TA4 PO (07:41)
[2019-03-11] MEDS ORDERED: ASPI325T17 PO (07:41)
[2019-03-11] MEDS ORDERED: ACETAMINOPHEN 500 MG TABLET PO ONE (08:00)
[2019-03-11] MEDS ORDERED: GABAPENTIN 300 MG CAPSULE PO ONE (08:00)
[2019-03-11] MEDS ORDERED: LACTATED RINGERS 1,000 ML IV SCH (08:00)
[2019-03-11] MEDS ORDERED: MEPERIDINE/PF 25MG/ML,1ML IVPush PRN (08:30)
[2019-03-11] MEDS ORDERED: FENTANYL PF 100 MCG/2ML IV PRN (08:30)
[2019-03-11] MEDS ORDERED: MORPHINE SULFATE 4 MG/ML, 1ML IVPush PRN (08:30)
[2019-03-11] MEDS ORDERED: hydrALAzine 20 MG/ML, 1ML IV PRN (08:30)
[2019-03-11] MEDS ORDERED: LABETALOL 5MG/ML, 20ML IV PRN (08:30)
[2019-03-11] MEDS ORDERED: HYDROmorphone 2 MG/ML, 1ML IVPush PRN (08:30)
[2019-03-11] MEDS ORDERED: OXYcodone 5 MG/5 ML ORAL.SOL UDC PO PRN (08:30)
[2019-03-11] MEDS ORDERED: ONDANSETRON 2MG/ML, 2ML IV PRN (08:30)
[2019-03-11] MEDS ORDERED: EPINEPHRINE 1 MG/ML, 1ML INFIL ONE (08:55)
[2019-03-11] MEDS ORDERED: SUGAMMADEX 200 MG/2 ML IVPush ONE (09:13)
== END 2019-03-11 11:45 | disposition home or self-care (01) ==
LOC: OUT 06:51
PROVIDERS: ATTEND Surgery
DX: K80.20 Calculus of gallbladder without cholecystitis without obstruction (principal); I10 Essential (primary) hypertension; J45.909 Unspecified asthma, uncomplicated; I48.91 Unspecified atrial fibrillation; M10.9 Gout, unspecified; Z79.82 Long term (current) use of aspirin; Z79.899 Other long term (current) drug therapy; Z87.891 Personal history of nicotine dependence; Z90.49 Acquired absence of other specified parts of digestive tract; Z98.890 Other specified postprocedural states; Z82.49 Family history of ischemic heart disease and other diseases of the circulatory system
CPT/HCPCS: 47579; 80047; 88300; C1729; C1760; J0171; J0690; J2704; J2710; J3010; J3490; J7120

== ENCOUNTER 2019-05-11 13:27 | Emergency (ER) | payer MEDICARE ==
[~2019-05-11] VITALS: Ht 162.6 cm; Wt 69.8 kg
[~2019-05-11 13:27] MED LIST changes: +ASPI325T17 PO; +MECL25TA4 PO
[2019-05-11 15:00] LABS: ALBUMIN 4.1 g/dL (3.4-5.0); ANION GAP 3 mmol/L (5-15); CALCIUM 8.8 mg/dL (8.5-10.1); CHLORIDE 104 mmol/L (98-107); CREATININE 1.19 mg/dL (0.7-1.3)
--- NOTE | 2019-05-11 15:06 | NUR ---
PT PRESENTS TO ED WITH C/O RIGHT NECK PAIN X 1 WEEK, DENIES TRAUMA/INJURY. PT DENIES CP/SOB. 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 PT A&O, RESPS EVEN AND UNLABORED. CALL LIGHT IN REACH. PIV PLACED BY EDT. PT TO HAVE CT SCAN, PT INFORMED OF POC.
--- NOTE | 2019-05-11 15:08 | NUR ---
REPORT GIVEN TO AYAH STARKEY.
--- NOTE | 2019-05-11 15:12 | NUR ---
EDPA NOTIFIED OF REPEAT BP
[2019-05-11 15:52] LABS: BASOPHILS # (AUTO) 0.03 x10^3/uL (0-0.1); BASOPHILS % (AUTO) 1 % (0-1); EOSINOPHILS # (AUTO) 0.06 x10^3/uL (0-0.4); EOSINOPHILS % (AUTO) 2 % (1-7); LYMPHOCYTES # (AUTO) 0.66 x10^3/uL (1-3.4); LYMPHOCYTES % (AUTO) 16 % (22-44); MD NO; MEAN CORPUSCULAR HEMOGLOBIN 33.5 pg (27.5-34.5); MEAN CORPUSCULAR HGB CONC 33.8 g/dL (33.2-36.2); MEAN CORPUSCULAR VOLUME 99.2 fL (81-97); MEAN PLATELET VOLUME 7.8 fL (7.4-10.4); MONOCYTES # (AUTO) 0.36 x10^3/uL (0.2-0.8); MONOCYTES % (AUTO) 9 % (2-9); NEUTROPHILS # (AUTO) 3.06 x10^3/uL (1.8-6.8); NEUTROPHILS % (AUTO) 73 % (42-75); PLATELET COUNT 136 x10^3/uL (130-400); RED BLOOD COUNT 4.44 x10^6/uL (4.38-5.82); RED CELL DISTRIBUTION WIDTH 14.5 % (9.4-14.8)
--- NOTE | 2019-05-11 17:27 | NUR ---
CTA RESULTS BACK, PT FOR RECHECK. VSS/UPDATED IN COMPUTER. PT UP/AMB WITH STEADY GAIT TO BR.
[2019-05-11 17:28] VITALS: BP 137/88
[2019-05-11] MEDS ORDERED: OMNIPAQUE 350 MG/ML, 100ML BOTTLE ONE (17:56)
== END 2019-05-11 18:08 | disposition home or self-care (01) ==
LOC: ED 14:33
DX: S29.012A Strain of muscle and tendon of back wall of thorax, initial encounter (principal); I10 Essential (primary) hypertension; M10.9 Gout, unspecified; Z87.891 Personal history of nicotine dependence; Z90.89 Acquired absence of other organs; Z90.49 Acquired absence of other specified parts of digestive tract; X58.XXXA Exposure to other specified factors, initial encounter; Y93.89 Activity, other specified; Y92.89 Other specified places as the place of occurrence of the external cause; Y99.8 Other external cause status
CPT/HCPCS: 36415; 71045; 71275; 80048; 82040; 85025; 99284; Q9967

== ENCOUNTER 2019-08-14 19:22 | Inpatient (IN) | payer MEDICARE ==
[~2019-08-14] VITALS: Ht 162.6 cm; Wt 73.0 kg
[~2019-08-14 19:22] MED LIST changes: +MECL-101 PO; -MECL12.52 PO; +MECL12.581 PO; -MECL25TA4 PO
--- NOTE | 2019-08-14 20:10 | NUR ---
PT A&OX4, RESP EVEN & UNLABORED, SPEECH CLEAR, SKIN WNL. REPORTS BRIGHT BLOOD IN STOOL X 3 DAYS. DENIES ABD PAIN. NO PAIN MEDS OR PEPTO-BISMOL TAKEN TODAY. LAST ORAL INTAKE: THIS MORNING. LAST BM: THREE TIMES TODAY.
[2019-08-14] MEDS ORDERED: ASPI-650 PO (20:18)
[2019-08-14] MEDS ORDERED: LOSA100T14 PO (20:18)
[2019-08-14 20:25] LABS: BASOPHILS # (AUTO) 0.03 x10^3/uL (0-0.1); BASOPHILS % (AUTO) 0 % (0-1); EOSINOPHILS # (AUTO) 0.02 x10^3/uL (0-0.4); EOSINOPHILS % (AUTO) 0 % (1-7); LYMPHOCYTES # (AUTO) 0.78 x10^3/uL (1-3.4); LYMPHOCYTES % (AUTO) 10 % (22-44); MD NO; MEAN CORPUSCULAR HEMOGLOBIN 33.1 pg (27.5-34.5); MEAN CORPUSCULAR HGB CONC 33.2 g/dL (33.2-36.2); MEAN CORPUSCULAR VOLUME 99.7 fL (81-97); MEAN PLATELET VOLUME 7.3 fL (7.4-10.4); MONOCYTES # (AUTO) 0.55 x10^3/uL (0.2-0.8); MONOCYTES % (AUTO) 7 % (2-9); NEUTROPHILS # (AUTO) 6.46 x10^3/uL (1.8-6.8); NEUTROPHILS % (AUTO) 83 % (42-75); PLATELET COUNT 194 x10^3/uL (130-400); RED BLOOD COUNT 3.29 x10^6/uL (4.38-5.82)
[2019-08-14 20:32] LABS: INTERNATIONAL NORMALIZED RATIO 1.06 (0.93-1.1); PROTHROMBIN TIME 11.2 Seconds (9.6-11.5)
[2019-08-14 20:33] LABS: ALBUMIN 3.2 g/dL (3.4-5.0); ANION GAP 8 mmol/L (5-15); CALCIUM 8.5 mg/dL (8.5-10.1); CHLORIDE 106 mmol/L (98-107)
[2019-08-14 20:36] LABS: ALANINE AMINOTRANSFERASE 20 U/L (12-78); ALKALINE PHOSPHATASE 47 U/L (45-117); BILIRUBIN,TOTAL 0.3 mg/dL (0.2-1.0); TOTAL PROTEIN 6.8 g/dL (6.4-8.2)
--- NOTE | 2019-08-14 21:37 | NUR ---
RESTING ON GURNEY; DARLINE IN ROOM. CARDIAC MONITORING CONTINUING.
[2019-08-14] MEDS ORDERED: PANTOPRAZOLE 80 MG in SODIUM CHLORIDE 0.9% 50 ML IV ONE (21:38)
--- NOTE | 2019-08-14 21:56 | NUR ---
CONTACTS: GRANDSON - [place] LIN ( 09/25/1987) CELL [phone]. DAUGHTER - ELLIOT JUSTINWILLIE ( 10/07/1964) CELL [phone]. VERBAL PERMISSION FROM PT TO PROVIDE INFORMATION TO [place] AND/OR ELLIOT.
[2019-08-14] MEDS ORDERED: SODIUM CHLORIDE 0.9% 1,000ML IVBOLUS ONE (22:00)
[2019-08-14] MEDS ORDERED: ONDANSETRON ODT 4 MG PO PRN (22:00)
[2019-08-14] MEDS ORDERED: PANTOPRAZOLE 40 MG IV IVPush ONE (22:00)
--- NOTE | 2019-08-14 22:04 | NUR ---
PROTONIX GHULAM, INFUSING AT 200ML/HR VIA PUMP. IV SITE PATENT. URINAL PROVIDED TO PT. SIDE RAIL UP X1, CALL LIGHT W/IN REACH.
--- NOTE | 2019-08-14 22:10 | NUR ---
PT REPORT TO AYAH MANZANARES FOR ROOM [phone]
[2019-08-14 22:38] VITALS: BP 96/60
[2019-08-14] MEDS: LACTATED RINGERS 1,000 ML IV SCH (23:03)
[2019-08-15 01:12] VITALS: BP 107/61
[2019-08-15 02:13] LABS: ANION GAP 5 mmol/L (5-15); CALCIUM 7.5 mg/dL (8.5-10.1); CHLORIDE 111 mmol/L (98-107); CREATININE 1.29 mg/dL (0.7-1.3)
[2019-08-15 02:14] LABS: BASOPHILS # (AUTO) 0.02 x10^3/uL (0-0.1); BASOPHILS % (AUTO) 0 % (0-1); EOSINOPHILS # (AUTO) 0.08 x10^3/uL (0-0.4); EOSINOPHILS % (AUTO) 1 % (1-7); LYMPHOCYTES # (AUTO) 1.34 x10^3/uL (1-3.4); LYMPHOCYTES % (AUTO) 22 % (22-44); MD NO; MEAN CORPUSCULAR HEMOGLOBIN 33.2 pg (27.5-34.5); MEAN CORPUSCULAR HGB CONC 33.3 g/dL (33.2-36.2); MEAN CORPUSCULAR VOLUME 99.8 fL (81-97); MEAN PLATELET VOLUME 6.9 fL (7.4-10.4); MONOCYTES # (AUTO) 0.47 x10^3/uL (0.2-0.8); MONOCYTES % (AUTO) 8 % (2-9); NEUTROPHILS # (AUTO) 4.19 x10^3/uL (1.8-6.8); NEUTROPHILS % (AUTO) 69 % (42-75); PLATELET COUNT 154 x10^3/uL (130-400); RED BLOOD COUNT 2.55 x10^6/uL (4.38-5.82); RED CELL DISTRIBUTION WIDTH 14.9 % (9.4-14.8)
[2019-08-15 06:01] LABS: BASOPHILS # (AUTO) 0.02 x10^3/uL (0-0.1); BASOPHILS % (AUTO) 0 % (0-1); EOSINOPHILS # (AUTO) 0.09 x10^3/uL (0-0.4); EOSINOPHILS % (AUTO) 2 % (1-7); LYMPHOCYTES # (AUTO) 1.25 x10^3/uL (1-3.4); LYMPHOCYTES % (AUTO) 23 % (22-44); MD NO; MEAN CORPUSCULAR HEMOGLOBIN 33.4 pg (27.5-34.5); MEAN CORPUSCULAR HGB CONC 33.7 g/dL (33.2-36.2); MEAN CORPUSCULAR VOLUME 99.2 fL (81-97); MEAN PLATELET VOLUME 6.7 fL (7.4-10.4); MONOCYTES # (AUTO) 0.46 x10^3/uL (0.2-0.8); MONOCYTES % (AUTO) 9 % (2-9); NEUTROPHILS # (AUTO) 3.53 x10^3/uL (1.8-6.8); NEUTROPHILS % (AUTO) 66 % (42-75); PLATELET COUNT 150 x10^3/uL (130-400); RED BLOOD COUNT 2.51 x10^6/uL (4.38-5.82); RED CELL DISTRIBUTION WIDTH 15.2 % (9.4-14.8)
[2019-08-15] MEDS: PANTOPRAZOLE 40 MG IV IVPush SCH ×2 (07:35→16:00)
[2019-08-15] MEDS: LACTATED RINGERS 1,000 ML IV SCH ×2 (07:36→16:01)
[2019-08-15 07:41] VITALS: BP 118/77
[2019-08-15] MEDS: ALBUTEROL SULFATE 2.5 MG/3 ML NPPB SCH ×3 (08:00→21:05)
[2019-08-15] MEDS ORDERED: FLUTICASONE/VILANTEROL 200-25MCG/INH INH SCH (09:00)
[2019-08-15] MEDS: BUDESONIDE 0.5 MG/2 ML INHA NPPB SCH ×2 (09:00→21:05)
[2019-08-15 12:35] VITALS: BP 106/67
[2019-08-15] MEDS ORDERED: ALBUTEROL SULFATE 2.5 MG/3 ML NPPB SCH (17:30)
[2019-08-15 20:15] VITALS: BP 129/74
[2019-08-15] MEDS ORDERED: BUDESONIDE 0.5 MG/2 ML INHA NPPB SCH (21:00)
[2019-08-16 00:31] VITALS: BP 107/67
[2019-08-16] MEDS: LACTATED RINGERS 1,000 ML IV SCH ×2 (02:07→15:20)
[2019-08-16] MEDS: ALBUTEROL SULFATE 2.5 MG/3 ML NPPB SCH ×4 (03:00→18:25)
[2019-08-16] MEDS: BUDESONIDE 0.5 MG/2 ML INHA NPPB SCH ×2 (06:25→07:48)
[2019-08-16 07:41] VITALS: BP 112/74
[2019-08-16] MEDS: PANTOPRAZOLE 40 MG IV IVPush SCH ×2 (08:39→17:38)
[2019-08-16] MEDS ORDERED: FENTANYL PF 100 MCG/2ML ONE ×2 (09:01→09:25)
[2019-08-16] MEDS ORDERED: EPHEDRINE 50 MG/ML, 1ML ONE (09:08)
[2019-08-16] MEDS ORDERED: PHENYLEPHRINE 10 MG/ML ONE (09:08)
[2019-08-16] MEDS ORDERED: SUCCINYLCHOLINE 20 MG/ML, 10ML ONE (09:15)
[2019-08-16] MEDS ORDERED: PROPOFOL 10 MG/ML, 20ML ONE (09:15)
[2019-08-16] MEDS ORDERED: ONDANSETRON 2MG/ML, 2ML ONE (09:15)
[2019-08-16] MEDS ORDERED: ROCURONIUM 10MG/ML,5ML ONE (09:15)
[2019-08-16] MEDS ORDERED: DEXAMETHASONE 4 MG/ML, 1ML ONE (09:15)
[2019-08-16] MEDS ORDERED: METOPROLOL 1 MG/ML, 5ML ONE (09:22)
[2019-08-16] MEDS ORDERED: ACETAMINOPHEN 325 MG TABLET PO PRN (09:30)
[2019-08-16] MEDS ORDERED: OXYcodone 5 MG/5 ML ORAL.SOL UDC PO PRN (09:30)
[2019-08-16] MEDS ORDERED: hydrALAzine 20 MG/ML, 1ML IV PRN (09:30)
[2019-08-16] MEDS ORDERED: ONDANSETRON 2MG/ML, 2ML IV PRN (09:30)
[2019-08-16] MEDS ORDERED: LABETALOL 5MG/ML, 20ML IV PRN (09:30)
[2019-08-16] MEDS ORDERED: FENTANYL PF 100 MCG/2ML IV PRN (09:30)
[2019-08-16] MEDS ORDERED: MEPERIDINE/PF 25MG/ML,1ML IVPush PRN (09:30)
[2019-08-16] MEDS ORDERED: HYDROmorphone 2 MG/ML, 1ML IVPush PRN (09:30)
[2019-08-16] MEDS ORDERED: PROMETHAZINE 25 MG/ML, 1ML IV PRN (09:30)
[2019-08-16] MEDS ORDERED: EPHEDRINE 50 MG/ML, 1ML IVPush PRN (09:30)
[2019-08-16 12:33] VITALS: BP 116/67
[2019-08-16 18:51] VITALS: BP 136/76
[2019-08-17] MEDS: LACTATED RINGERS 1,000 ML IV SCH (00:15)
[2019-08-17 01:08] VITALS: BP 124/62
[2019-08-17] MEDS: ALBUTEROL SULFATE 2.5 MG/3 ML NPPB SCH ×4 (02:00→20:00)
[2019-08-17 07:59] VITALS: BP 120/75
[2019-08-17] MEDS: BUDESONIDE 0.5 MG/2 ML INHA NPPB SCH ×2 (08:00→21:00)
[2019-08-17] MEDS: PANTOPRAZOLE 40 MG IV IVPush SCH ×2 (08:55→18:02)
[2019-08-17 13:19] VITALS: BP 113/67
[2019-08-17] MEDS ORDERED: PANT40TA3 PO ×2 (14:30)
[2019-08-17] MEDS ORDERED: DIPHENHYDRAMINE 25 MG CAPSULE PO PRN (19:00)
[2019-08-17 19:46] VITALS: BP 110/64
[2019-08-18] MEDS: ALBUTEROL SULFATE 2.5 MG/3 ML NPPB SCH ×2 (02:00→07:25)
[2019-08-18 02:19] VITALS: BP 100/60
[2019-08-18 06:19] VITALS: BP 113/71
[2019-08-18 06:32] LABS: BASOPHILS # (AUTO) 0.01 x10^3/uL (0-0.1); BASOPHILS % (AUTO) 0 % (0-1); EOSINOPHILS # (AUTO) 0.04 x10^3/uL (0-0.4); EOSINOPHILS % (AUTO) 1 % (1-7); LYMPHOCYTES # (AUTO) 0.74 x10^3/uL (1-3.4); LYMPHOCYTES % (AUTO) 10 % (22-44); MD NO; MEAN CORPUSCULAR HEMOGLOBIN 33.3 pg (27.5-34.5); MEAN CORPUSCULAR HGB CONC 32.9 g/dL (33.2-36.2); MEAN CORPUSCULAR VOLUME 101.2 fL (81-97); MEAN PLATELET VOLUME 7.2 fL (7.4-10.4); MONOCYTES # (AUTO) 0.38 x10^3/uL (0.2-0.8); MONOCYTES % (AUTO) 5 % (2-9); NEUTROPHILS # (AUTO) 6.08 x10^3/uL (1.8-6.8); NEUTROPHILS % (AUTO) 84 % (42-75); PLATELET COUNT 153 x10^3/uL (130-400); RED BLOOD COUNT 2.29 x10^6/uL (4.38-5.82); RED CELL DISTRIBUTION WIDTH 15.7 % (9.4-14.8)
[2019-08-18 06:39] LABS: ANION GAP 5 mmol/L (5-15); CALCIUM 8.5 mg/dL (8.5-10.1); CHLORIDE 108 mmol/L (98-107); CREATININE 1.34 mg/dL (0.7-1.3)
[2019-08-18] MEDS ORDERED: ACETAMINOPHEN 500 MG TABLET PO ONE (07:00)
[2019-08-18] MEDS: BUDESONIDE 0.5 MG/2 ML INHA NPPB SCH (07:25)
[2019-08-18] MEDS: PANTOPRAZOLE 40 MG IV IVPush SCH (07:48)
[2019-08-18 12:06] VITALS: BP 123/70
== END 2019-08-18 16:27 | disposition home or self-care (01) | DRG 377 ==
LOC: ED 20:00 → EDIP 21:50 → 4EST 22:23
PROVIDERS: ADMIT Family Medicine; ATTEND Family Medicine
PROC: 0DB68ZX Excision of Stomach, Via Natural or Artificial Opening Endoscopic, Diagnostic (ICD-10-PCS; principal; 2019-08-16 09:00)
DX: K26.4 Chronic or unspecified duodenal ulcer with hemorrhage (principal); N17.0 Acute kidney failure with tubular necrosis; D62 Acute posthemorrhagic anemia; E78.5 Hyperlipidemia, unspecified; I10 Essential (primary) hypertension; I48.91 Unspecified atrial fibrillation; J45.909 Unspecified asthma, uncomplicated; M10.9 Gout, unspecified; K29.70 Gastritis, unspecified, without bleeding; Z90.49 Acquired absence of other specified parts of digestive tract; Z82.49 Family history of ischemic heart disease and other diseases of the circulatory system; Z79.82 Long term (current) use of aspirin; Z87.19 Personal history of other diseases of the digestive system; Z87.891 Personal history of nicotine dependence
CPT/HCPCS: 36415; 80048; 80053; 83690; 85014; 85018; 85025; 85610; 86850; 86900; 88305; 88342; 93005; 94640; 96374; G0378; J1100; J2405; J2704; J3010; J7613; J7626; C9113; J0330; J2370; J7030; J7120; Q0163

== ENCOUNTER 2020-09-04 16:49 | Inpatient (IN) | payer MEDICARE, MEDICAID ==
[~2020-09-04] VITALS: Ht 162.6 cm; Wt 69.4 kg
[~2020-09-04 16:49] MED LIST changes: +ASPI-1026 PO; -ASPI-515 PO; +ASPI-963 PO; +HYDR-2214 PO; -HYDR-3240 PO; +LOSA100T14 PO; -MECL12.581 PO; +MECL12.590 PO; -PANT20TA3 PO; +PANT20TA4 PO; +PANT40TA3 PO
--- NOTE | 2020-09-04 17:49 | NUR ---
ULTRASOUND AT BEDSIDE
--- NOTE | 2020-09-04 18:22 | NUR ---
RESTING WITH EYES CLOSED. LAB ARRIVING FOR BLOOD DRAW. CONTINUE TO MONITOR
[2020-09-04 18:26] LABS: BASOPHILS % (AUTO) 1 % (0-1); EOSINOPHILS % (AUTO) 2 % (1-7); LYMPHOCYTES % (AUTO) 15 % (22-44); MEAN CORPUSCULAR HEMOGLOBIN 34.1 pg (27.5-34.5); MEAN CORPUSCULAR HGB CONC 34.4 g/dL (33.2-36.2); MEAN PLATELET VOLUME 6.4 fL (7.4-10.4); MONOCYTES % (AUTO) 9 % (2-9); NEUTROPHILS % (AUTO) 73 % (42-75); PLATELET COUNT 170 x10^3/uL (130-400); RED BLOOD COUNT 3.85 x10^6/uL (4.38-5.82); RED CELL DISTRIBUTION WIDTH 14.4 % (9.4-14.8)
[2020-09-04 18:27] LABS: MD NO
[2020-09-04 18:37] LABS: ALANINE AMINOTRANSFERASE 21 U/L (12-78); ALBUMIN 3.9 g/dL (3.4-5.0); CALCIUM 8.2 mg/dL (8.5-10.1); CHLORIDE 88 mmol/L (98-107); CREATININE 1.17 mg/dL (0.7-1.3)
[2020-09-04 18:40] LABS: ALKALINE PHOSPHATASE 56 U/L (45-117); BILIRUBIN,TOTAL 0.7 mg/dL (0.2-1.0); TOTAL PROTEIN 7.3 g/dL (6.4-8.2)
[2020-09-04 18:45] LABS: ANION GAP 7 mmol/L (5-15)
--- NOTE | 2020-09-04 19:05 | NUR ---
BEDSIDE REPORT FROM YESI POON
[2020-09-04] MEDS ORDERED: SODIUM CHLORIDE FLUSH 10ML SYR IVF PRN (20:00)
--- NOTE | 2020-09-04 20:22 | NUR ---
REPORT GIVEN TO AMIRAH POON
[2020-09-04] MEDS ORDERED: BISACODYL 10 MG SUPP PR PRN (21:00)
[2020-09-04] MEDS ORDERED: ONDANSETRON 2MG/ML, 2ML IVPush PRN (21:00)
[2020-09-04] MEDS ORDERED: ENALAPRILAT 1.25 MG/ML, 2ML IVPush PRN (21:00)
[2020-09-04] MEDS ORDERED: POLYETHYLENE GLYCOL 17 GM PACKET PO PRN (21:00)
[2020-09-04] MEDS ORDERED: DOCUSATE 100 MG CAPSULE PO PRN (21:00)
[2020-09-04] MEDS ORDERED: SODIUM CHLORIDE 0.9% 1,000 ML IV SCH (21:00)
[2020-09-04] MEDS: ENOXAPARIN 40 MG/0.4 ML SQ SCH (21:00)
[2020-09-04] MEDS ORDERED: ACETAMINOPHEN 325 MG TABLET PO PRN (21:00)
[2020-09-04] MEDS ORDERED: ASPI325T20 PO (22:54)
[2020-09-04 22:56] VITALS: BP 132/81
[2020-09-05] MEDS: TAMSULOSIN 0.4 MG CAP.ER.24H PO SCH ×2 (00:08→09:48)
[2020-09-05 00:56] VITALS: BP 130/71
[2020-09-05] MEDS ORDERED: DEXTROSE 5% 1,000 ML IV SCH (02:30)
[2020-09-05] MEDS: ASPIRIN 325 MG TABLET PO SCH (05:42)
[2020-09-05 06:25] LABS: ANION GAP 4 mmol/L (5-15); CALCIUM 8.9 mg/dL (8.5-10.1); CHLORIDE 98 mmol/L (98-107); CREATININE 1.15 mg/dL (0.7-1.3)
[2020-09-05 07:02] VITALS: BP 127/79
[2020-09-05] MEDS ORDERED: [UNRECOGNIZED DRUG - OTHER] PO SCH (09:00)
[2020-09-05] MEDS ORDERED: BOSWELLIA SERRA PO SCH (09:00)
[2020-09-05] MEDS ORDERED: D3 PO SCH (09:00)
[2020-09-05] MEDS ORDERED: GLUCOSAMINE PO SCH (09:00)
[2020-09-05] MEDS: LORATADINE 10 MG TABLET PO SCH (09:46)
[2020-09-05] MEDS: ALLOPURINOL 100 MG TABLET PO SCH (09:47)
[2020-09-05] MEDS: LOSARTAN 100 MG TAB PO SCH (09:47)
[2020-09-05] MEDS: CHOLECALCIFEROL 1,000 UNIT TABLET PO SCH (09:48)
[2020-09-05] MEDS: MECLIZINE 25 MG TABLET PO SCH (09:48)
[2020-09-05] MEDS: FLUTICASONE/VILANTEROL 200-25MCG/INH INH SCH (10:15)
[2020-09-05 12:52] VITALS: BP 114/69
[2020-09-05 20:22] VITALS: BP 115/71
[2020-09-05] MEDS: ENOXAPARIN 40 MG/0.4 ML SQ SCH (20:37)
[2020-09-05] MEDS ORDERED: SODIUM CHLORIDE 0.9% 1,000 ML IV SCH (21:00)
[2020-09-06 01:10] VITALS: BP 152/77
[2020-09-06 05:22] LABS: ANION GAP 5 mmol/L (5-15); CALCIUM 8.9 mg/dL (8.5-10.1); CHLORIDE 100 mmol/L (98-107)
[2020-09-06 05:23] LABS: CREATININE 1.07 mg/dL (0.7-1.3)
[2020-09-06] MEDS: ASPIRIN 325 MG TABLET PO SCH (06:17)
[2020-09-06 07:04] VITALS: BP 150/88
[2020-09-06] MEDS: TAMSULOSIN 0.4 MG CAP.ER.24H PO SCH (09:48)
[2020-09-06] MEDS: MECLIZINE 25 MG TABLET PO SCH (09:48)
[2020-09-06] MEDS: CHOLECALCIFEROL 1,000 UNIT TABLET PO SCH (09:48)
[2020-09-06] MEDS: LORATADINE 10 MG TABLET PO SCH (09:48)
[2020-09-06] MEDS: LOSARTAN 100 MG TAB PO SCH (09:48)
[2020-09-06] MEDS: ALLOPURINOL 100 MG TABLET PO SCH (09:49)
[2020-09-06] MEDS: FLUTICASONE/VILANTEROL 200-25MCG/INH INH SCH (10:05)
[2020-09-06 12:52] VITALS: BP 110/71
== END 2020-09-06 15:17 | disposition home health service (06) | DRG 641 ==
LOC: ED 19:20 → EDIP 19:32 → ED 20:00 → 4WST 20:56 → DCLOUNGE 09-06 15:10
PROVIDERS: ADMIT Family Medicine; ATTEND Family Medicine
DX: E87.1 Hypo-osmolality and hyponatremia (principal); I48.20 Chronic atrial fibrillation, unspecified; I10 Essential (primary) hypertension; J45.909 Unspecified asthma, uncomplicated; M10.9 Gout, unspecified; K21.9 Gastro-esophageal reflux disease without esophagitis; R60.0 Localized edema; R26.89 Other abnormalities of gait and mobility; Z82.49 Family history of ischemic heart disease and other diseases of the circulatory system; Z87.891 Personal history of nicotine dependence
CPT/HCPCS: 36415; 80048; 80053; 83735; 83930; 83935; 84295; 84300; 85025; 93005; 93306; 93970; 94640; G0378; J1650; J7070; J7030